=== PATIENT | male | born 1970 | race Hispanic/Latino ===

== ENCOUNTER 2019-05-07 16:56 | Emergency (ER) | payer OTHER ==
[2019-05-07] MEDS ORDERED: SODIUM CHLORIDE 0.9% 1000ML 1,000 ML IV ONE (17:26)
[2019-05-07] MEDS ORDERED: ONDANSETRON HCL 4 MG/2 ML VIAL ONE (17:27)
[2019-05-07 17:28] LABS: BASOPHILS % (AUTO) 0.8 % (0.0-5.0); EOSINOPHILS % (AUTO) 2.8 % (0.0-8.0); HEMATOCRIT 40.7 % (42-54); LYMPHOCYTES % (AUTO) 34.1 % (21.0-51.0); MEAN CORPUSCULAR HEMOGLOBIN 31.2 pg (27.0-33.0); MEAN CORPUSCULAR HGB CONC 34.7 g/dL (32.0-36.0); MEAN CORPUSCULAR VOLUME 89.9 fL (79-99); MONOCYTES % (AUTO) 5.2 % (3.0-13.0); NEUTROPHILS % (AUTO) 57.1 % (40.0-77.0); PLATELET COUNT (AUTO) 241 K/uL (130-400); RED BLOOD CELL COUNT(AUTO) 4.53 MIL/uL (4.50-6.20); RED CELL DISTRIBUTION WIDTH 14.3 % (11.0-15.5); WHITE BLOOD COUNT (AUTO) 9.7 K/uL (4.8-10.8)
[2019-05-07 17:42] LABS: CREATININE 0.9 mg/dL (0.5-1.5); POTASSIUM 3.5 mmol/L (3.5-5.1)
[2019-05-07 17:43] LABS: ALBUMIN 3.4 g/dL (3.5-5.0); BILIRUBIN,TOTAL 0.3 mg/dL (0.2-1.0); TOTAL PROTEIN, SERUM 6.9 g/dL (6.0-8.3)
== END 2019-05-07 18:43 | disposition home or self-care (01) ==
LOC: EDH 16:56
DX: R10.13 Epigastric pain (principal); R11.2 Nausea with vomiting, unspecified; Z72.0 Tobacco use
CPT/HCPCS: 36415; 80053; 83690; 84484; 85025; 93005; 96361; 96374; 96375; 99285; J2405; J7030

== ENCOUNTER 2019-10-05 14:13 | Inpatient (IN) | payer SELFPAY ==
[~2019-10-05] VITALS: Ht 172.7 cm; Wt 97.1 kg
[2019-10-05 14:32] LABS: BASOPHILS % (AUTO) 0.3 % (0.0-5.0); EOSINOPHILS % (AUTO) 1.1 % (0.0-8.0); HEMATOCRIT 41.6 % (42-54); LYMPHOCYTES % (AUTO) 25.2 % (21.0-51.0); MEAN CORPUSCULAR HEMOGLOBIN 29.3 pg (27.0-33.0); MEAN CORPUSCULAR HGB CONC 34.1 g/dL (32.0-36.0); MEAN CORPUSCULAR VOLUME 85.8 fL (79-99); MONOCYTES % (AUTO) 6.1 % (3.0-13.0); NEUTROPHILS % (AUTO) 66.8 % (40.0-77.0); PLATELET COUNT (AUTO) 244 K/uL (130-400); RED BLOOD CELL COUNT(AUTO) 4.85 MIL/uL (4.50-6.20); RED CELL DISTRIBUTION WIDTH 13.2 % (11.0-15.5); WHITE BLOOD COUNT (AUTO) 13.5 K/uL (4.8-10.8)
[2019-10-05 14:40] LABS: INR 0.94 (0.85-1.15); PARTIAL THROMBOPLASTIN TIME 29.7 SEC (26.3-35.5); PROTHROMBIN TIME 9.9 SEC (9.6-11.6)
[2019-10-05 14:45] LABS: CREATININE 0.9 mg/dL (0.5-1.5); POTASSIUM 3.4 mmol/L (3.5-5.1)
[2019-10-05 14:57] LABS: ALBUMIN 2.6 g/dL (3.5-5.0); BILIRUBIN,TOTAL 0.4 mg/dL (0.2-1.0); TOTAL PROTEIN, SERUM 6.8 g/dL (6.0-8.3)
[2019-10-05] MEDS ORDERED: KETOROLAC TROMETHAMINE 30MG/ML ONE (16:31)
[2019-10-05] MEDS ORDERED: LACTULOSE 20 GM/30 ML UDCUP PO PRN (19:00)
[2019-10-05] MEDS ORDERED: POTASSIUM CHLORIDE 20MEQ/100ML 100 ML IV PRN (19:00)
[2019-10-05] MEDS ORDERED: LIDOCAINE HCL-MPF 1% 2ML VIAL IV PRN (19:00)
[2019-10-05] MEDS ORDERED: ACETAMINOPHEN 325 MG TAB PO PRN ×2 (19:00)
[2019-10-05] MEDS ORDERED: POTASSIUM CHLORIDE 10% ELIXIR 20 MEQ/15 ML UDCUP PO PRN (19:00)
[2019-10-05] MEDS ORDERED: ACETAMINOPHEN 325 MG TAB ONE (20:02)
[2019-10-05] MEDS: FAMOTIDINE 20MG TAB 20 MG TAB PO SCH (21:00)
[2019-10-05] MEDS: ATORVASTATIN CALCIUM 20 MG TABLET PO SCH (21:00)
[2019-10-05 21:24] LABS: APPEARANCE,URINE Clear (CLEAR); BILIRUBIN,URINE Small (NEGATIVE); COLOR,URINE Dark Yellow (YELLOW); GLUCOSE, URINE (UA) Negative (NEGATIVE); KETONES,URINE Trace mg/dL (NEGATIVE); LEUKOCYTE ESTERASE ,URINE Negative (NEGATIVE); NITRATE,URINE Negative (NEGATIVE); OCCULT BLOOD,URINE Negative (NEGATIVE); PROTEIN,URINE Trace mg/dL (NEGATIVE)
[2019-10-05 21:32] LABS: AMPHET/METH SCREEN,URINE NEGATIVE (NEGATIVE); BARBITURATE SCREEN, URINE NEGATIVE (NEGATIVE); BENZODIAZEPINES SCREEN,URINE NEGATIVE (NEGATIVE); CANNABINOID SCREEN,URINE NEGATIVE (NEGATIVE); COCAINE SCREEN,URINE NEGATIVE (NEGATIVE); OPIATE SCREEN,URINE NEGATIVE (NEGATIVE); PHENCYCLIDINE SCREEN,URINE NEGATIVE (NEGATIVE)
[2019-10-05 21:39] LABS: BACTERIA,URINE Few /HPF (None Seen); MUCUS,URINE Moderate LPF (None Seen); SQUAMOUS EPITHELIAL CELL,UR 0-2 /HPF (0-2)
[2019-10-05 21:49] LABS: CREATINE KINASE, TOTAL 106 U/L (21-232); MYOGLOBIN 60 ng/mL (10-92); TROPONIN I < 0.04 ng/mL (0.00-0.06)
[2019-10-05] MEDS ORDERED: FAMOTIDINE 20MG TAB 20 MG TAB ONE (22:14)
[2019-10-05] MEDS ORDERED: ATORVASTATIN CALCIUM 20 MG TABLET ONE (22:15)
[2019-10-06 00:24] VITALS: BP 116/59
[2019-10-06 04:00] VITALS: BP 103/62
[2019-10-06 04:02] LABS: BASOPHILS % (AUTO) 0.6 % (0.0-5.0); LYMPHOCYTES % (AUTO) 35.1 % (21.0-51.0); MEAN CORPUSCULAR HEMOGLOBIN 29.6 pg (27.0-33.0); MEAN CORPUSCULAR HGB CONC 34.1 g/dL (32.0-36.0); MEAN CORPUSCULAR VOLUME 86.7 fL (79-99); MONOCYTES % (AUTO) 4.8 % (3.0-13.0); NEUTROPHILS % (AUTO) 57.2 % (40.0-77.0); PLATELET COUNT (AUTO) 245 K/uL (130-400); RED CELL DISTRIBUTION WIDTH 13.2 % (11.0-15.5)
[2019-10-06 04:15] LABS: POTASSIUM 3.8 mmol/L (3.5-5.1)
[2019-10-06 08:23] VITALS: BP 113/69
[2019-10-06] MEDS: FAMOTIDINE 20MG TAB 20 MG TAB PO SCH ×2 (08:45→20:45)
[2019-10-06] MEDS ORDERED: ASPIRIN 325 MG TABLET PO SCH (09:00)
[2019-10-06 11:54] VITALS: BP 120/69
[2019-10-06] MEDS: POTASSIUM CHLORIDE 20 MEQ ERTAB PO PRN ×2 (11:56→15:52)
[2019-10-06 17:01] VITALS: BP 121/83
--- NOTE | 2019-10-06 17:32 | NUR ---
INITIAL SW met with patient. Patient states he lives with his daughter. Emergency contact is girlfriend, Marla Gibbs, [phone]. No home services or DME. 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 He is able to complete ADL's independently and drives. No PCP. Pharmacy is [facility] in [place]. DCP is home. Patient has no insurance or benefits. He is a [place] citizen and presently works. Patient was provided with community resources for post hospitalization follow up. Patient was also provided with Good RX card for prescriptions and educated on [employer] $4 medication program and [employer] $5 medication program. Patient is being assisted by [employer] for financial matters. Addendum: 10/06/19 at 1734 by SHERIDAN MONROY SS Amended: Links added.
--- NOTE | 2019-10-06 19:57 | NUR ---
RECEIVED IN REPORT FROM MORNING SHIFT NURSE SOPHIA, THAT SHE SPOKE TO DR. RILEY AND REPORTED TO HIM THE MRA, AND CT CHEST RESULTS. ATTEMPTED TO FAX DOCUMENTATION TO THE NUMBER THAT WAS GIVEN BY DR. RILEY IN HIS ORDER, CURRENTLY BUSY. WILL ATTEMPT AGAIN LATER.
[2019-10-06 20:28] VITALS: BP 117/56
[2019-10-06] MEDS: ATORVASTATIN CALCIUM 20 MG TABLET PO SCH (20:45)
[2019-10-06] MEDS: CLOPIDOGREL BISULFATE 75 MG TAB PO SCH (20:46)
[2019-10-07 00:23] VITALS: BP 112/70
[2019-10-07 03:52] LABS: BASOPHILS % (AUTO) 0.3 % (0.0-5.0); EOSINOPHILS % (AUTO) 1.9 % (0.0-8.0); HEMATOCRIT 39.2 % (42-54); MEAN CORPUSCULAR HEMOGLOBIN 29.2 pg (27.0-33.0); MEAN CORPUSCULAR HGB CONC 33.4 g/dL (32.0-36.0); MEAN CORPUSCULAR VOLUME 87.3 fL (79-99); MONOCYTES % (AUTO) 5.5 % (3.0-13.0); PLATELET COUNT (AUTO) 283 K/uL (130-400); RED BLOOD CELL COUNT(AUTO) 4.49 MIL/uL (4.50-6.20); RED CELL DISTRIBUTION WIDTH 13.2 % (11.0-15.5); WHITE BLOOD COUNT (AUTO) 11.6 K/uL (4.8-10.8)
[2019-10-07 04:00] VITALS: BP 107/67
[2019-10-07 04:17] LABS: ALBUMIN 2.1 g/dL (3.5-5.0); BILIRUBIN,TOTAL 0.1 mg/dL (0.2-1.0); CREATININE 0.8 mg/dL (0.5-1.5); POTASSIUM 4.1 mmol/L (3.5-5.1); TOTAL PROTEIN, SERUM 5.8 g/dL (6.0-8.3)
[2019-10-07 08:00] VITALS: BP 115/73
[2019-10-07] MEDS: FAMOTIDINE 20MG TAB 20 MG TAB PO SCH (08:49)
[2019-10-07] MEDS: CLOPIDOGREL BISULFATE 75 MG TAB PO SCH (08:50)
[2019-10-07] MEDS ORDERED: CLOPIDOGREL BISULFATE 75 MG TAB PO SCH (09:00)
[2019-10-07] MEDS ORDERED: ASPIRIN 81MG TAB.CHEW PO SCH (09:00)
--- NOTE | 2019-10-07 10:00 | NUR ---
DR RILEY VISITED WITH PATIENT. POC DISCUSSED. DR RILEY DISCUSSED WITH PATIENT AND AT BEDSIDE MRA RESULTS, PATIENT REFUSED AT THIS TIME TO FOLLOW DR RILEY RECOMMENDATIONS TO SEE DR DE OLIVEIRA FOR ENDOVASCULAR INTERVENTION. DR RILEY ALSO RECOMMENDED FOR HIM TO F/U AT HIS OFFICE.
[2019-10-07 11:00] VITALS: BP 118/77
[2019-10-07] MEDS ORDERED: GABAPENTIN 100 MG CAPSULE PO SCH (14:00)
[2019-10-07 16:00] VITALS: BP 111/70
--- NOTE | 2019-10-07 17:12 | NUR ---
DR KRAUS CALLED BACK REGARDING CONSULT. STATED THERE IS NOTHING HE CAN DO FOR THE PATIENT. PATIENT NEEDS TO FOLLOW DR RILEY'S RECOMMENDATIONS. DEBI TATUM AWARE, ORDERED TO D/C PATIENT.
--- NOTE | 2019-10-07 18:30 | NUR ---
discharge PATIENT GIVEN DISCHARGE INSTRUCTION ON FOLLOW UP APPOINTMENTS, NEW PRESCRIBED MEDICATIONS AND DR RILEY'S RECOMMENDATIONS. PATIENT VERBALIZED UNDERSTANDING OF ALL EDUCATION GIVEN VIA TEACH BACK. PATIENT AWARE OF RISKS AND BENEFITS OF NOT FOLLOWINGS DR RILEY'S INSTRUCTIONS. PATIENT LEFT VIA WHEELCHAIR. NO DISTRESS NOTED UPON DISCHARGE.
== END 2019-10-07 19:05 | disposition home or self-care (01) | DRG 57 ==
LOC: EDH 14:13 → OBSVTOIN 14:14 → EDHIP 14:14 → 4BH 10-06 00:14
PROVIDERS: ADMIT Internal Medicine; ATTEND Internal Medicine
DX: G70.00 Myasthenia gravis without (acute) exacerbation (principal); G45.9 Transient cerebral ischemic attack, unspecified; E44.0 Moderate protein-calorie malnutrition; G51.0 Bell's palsy; H53.2 Diplopia; E87.6 Hypokalemia; Z87.891 Personal history of nicotine dependence; Z91.19 Patient's noncompliance with other medical treatment and regimen; H02.402 Unspecified ptosis of left eyelid; Z68.32 Body mass index [BMI] 32.0-32.9, adult
CPT/HCPCS: 36415; 70450; 70544; 70551; 71045; 71250; 80048; 80053; 80061; 80305; 81001; 82550; 82948; 83721; 83874; 84238; 84484; 85025; 85610; 85730; 93005; 97039; 99291; G0378; J1885

== ENCOUNTER → 2020-10-11 | Outpatient (CLI) | payer MEDICAID | END | disposition home or self-care (01) | LOC: OIH 09:31 | PROVIDERS: ATTEND Internal Medicine | DX: J98.11 Atelectasis (principal); I63.9 Cerebral infarction, unspecified; R56.9 Unspecified convulsions | CPT/HCPCS: 71046 ==

== ENCOUNTER → 2021-12-16 | Outpatient (CLI) | payer MEDICAID ==
[2021-12-16 14:24] LABS: BASOPHILS % (AUTO) 0.9 % (0.0-5.0); EOSINOPHILS % (AUTO) 3.8 % (0.0-8.0); HEMATOCRIT 45.8 % (42-54); LYMPHOCYTES % (AUTO) 36.4 % (21.0-51.0); MEAN CORPUSCULAR HEMOGLOBIN 30.5 pg (27.0-33.0); MEAN CORPUSCULAR HGB CONC 33.4 g/dL (32.0-36.0); MEAN CORPUSCULAR VOLUME 91.4 fL (79-99); MONOCYTES % (AUTO) 6.2 % (3.0-13.0); NEUTROPHILS % (AUTO) 52.3 % (40.0-77.0); PLATELET COUNT (AUTO) 274 K/uL (130-400); RED BLOOD CELL COUNT(AUTO) 5.01 MIL/uL (4.50-6.20); RED CELL DISTRIBUTION WIDTH 13.8 % (11.0-15.5); WHITE BLOOD COUNT (AUTO) 10.4 K/uL (4.8-10.8)
[2021-12-16 14:45] LABS: ALBUMIN 3.4 g/dL (3.5-5.0); BILIRUBIN,TOTAL 0.2 mg/dL (0.2-1.0); CREATININE 1.1 mg/dL (0.5-1.5); POTASSIUM 4.3 mmol/L (3.5-5.1); THYROID STIMULATING HORMONE 2.41 uIU/mL (0.36-3.74); TOTAL PROTEIN, SERUM 7.2 g/dL (6.0-8.3)
== END | disposition home or self-care (01) ==
LOC: RAH 13:35
PROVIDERS: ATTEND Internal Medicine
DX: J44.9 Chronic obstructive pulmonary disease, unspecified (principal); J32.9 Chronic sinusitis, unspecified; M72.2 Plantar fascial fibromatosis; M1A.9XX1 Chronic gout, unspecified, with tophus (tophi)
CPT/HCPCS: 36415; 71046; 80053; 84443; 85025

== ENCOUNTER 2023-07-31 09:31 | Emergency (ER) | payer MEDICAID, OTHER ==
[~2023-07-31] VITALS: Ht 165.1 cm; Wt 97.5 kg
[2023-07-31 10:09] LABS: HEMATOCRIT 48.3 % (42-54); MEAN CORPUSCULAR HGB CONC 34.2 g/dL (32.0-36.0); MEAN CORPUSCULAR VOLUME 90.8 fL (79-99); RED BLOOD CELL COUNT(AUTO) 5.32 MIL/uL (4.50-6.20); RED CELL DISTRIBUTION WIDTH 13.2 % (11.0-15.5); WHITE BLOOD COUNT (AUTO) 10.8 K/uL (4.8-10.8)
[2023-07-31 10:21] LABS: CREATININE 0.9 mg/dL (0.5-1.5); POTASSIUM 3.6 mmol/L (3.5-5.1)
[2023-07-31 10:25] LABS: ALBUMIN 3.6 g/dL (3.5-5.0); BILIRUBIN,TOTAL 0.5 mg/dL (0.2-1.0); TOTAL PROTEIN, SERUM 7.6 g/dL (6.0-8.3)
[2023-07-31] MEDS ORDERED: ONDANSETRON 4MG INJ IVP ONE (10:30)
[2023-07-31] MEDS ORDERED: MORPHINE 4 MG SYG IVP ONE (10:30)
[2023-07-31] MEDS ORDERED: LIDOCAINE HCL 2% VISCOUS 15 ML UDCUP PO ONE (10:30)
[2023-07-31] MEDS ORDERED: MAG/ALUM/SIMETH 30 ML UDCUP PO ONE (10:30)
[2023-07-31] MEDS ORDERED: 0.9%NACL 1000ML 1,000 ML IV ONE (10:30)
[2023-07-31] MEDS ORDERED: FAMO20TA8 PO (12:10)
[2023-07-31 13:15] VITALS: BP 125/70; PULSE 70; RESP 18; O2SAT 95
[2023-07-31 13:27] LABS: ADD UA MICROSCOPIC YES; APPEARANCE,URINE CLEAR (CLEAR); BILIRUBIN,URINE NEGATIVE (NEGATIVE); COLOR,URINE YELLOW (YELLOW); GLUCOSE, URINE (UA) NEGATIVE (NEGATIVE); KETONES,URINE NEGATIVE (NEGATIVE); LEUKOCYTE ESTERASE ,URINE NEGATIVE Leu/uL (NEGATIVE); NITRATE,URINE NEGATIVE (NEGATIVE); OCCULT BLOOD,URINE NEGATIVE (NEGATIVE); PH,URINE 6.5 (5.0-8.0); PROTEIN,URINE 20 mg/dL (NEGATIVE); UROBILINOGEN,URINE 6 mg/dL (0.2-1.0)
[2023-07-31 13:28] LABS: MUCUS,URINE RARE LPF (None Seen); OTHER CASTS, URINE 1 /LPF (None Seen); RBC,URINE 0-1 /HPF (0-1); SQUAMOUS EPITHELIAL CELL,UR RARE /HPF (0-2); WBC,URINE 0-1 /HPF (0-1)
== END 2023-07-31 13:48 | disposition home or self-care (01) ==
LOC: EDH 09:31
DX: K29.00 Acute gastritis without bleeding (principal); R16.0 Hepatomegaly, not elsewhere classified; R11.10 Vomiting, unspecified; Z98.890 Other specified postprocedural states
CPT/HCPCS: 99285; 96374; 76705; 96361; 96375; 84484; 80053; 83690; 85027; 81001; 36415; 93005; J7030; J2405; J2270

== ENCOUNTER 2024-08-27 19:14 | Emergency (ER) | payer SELFPAY ==
[~2024-08-27] VITALS: Ht 167.6 cm; Wt 99.8 kg
[~2024-08-27 19:14] MED LIST: FAMO20TA8 PO
[2024-08-27 19:15] VITALS: TEMP 98.1
--- NOTE | 2024-08-27 20:06 | ERN ---
ED Note History of Present Illness Stated Complaint: COUGH, CONGESTION, BODY ACHES Chief Complaint: Cough Time Seen by MD: 19:20 Dictation: Patient is a 54-year-old male coming in with flu-like symptoms to include malaise, persistent dry cough, clear runny nose with sore throat for 3-4 days. No nausea vomiting no diarrhea no loss of taste or smell. He has taken nothing today prior to arrival for pain or cough, no primary care doctor. Allergies: Coded Allergies: No Known Allergies (Unverified Allergy, Unknown, 05/07/19) Home Meds Active Scripts Famotidine (Famotidine) 20 Mg Tablet, 20 MG PO BID, #14 TAB Prov:RONY LEE 07/31/23 Past Medical History Past Medical History: No Pertinent History Surgical History: None Surgical History Other: CARDIAC STENT RN Note Reviewed/Agreed w/PFSH: Yes Review of System Dictation CONSTITUTIONAL: Negative except for HPI HEAD/FACE: Negative except for HPI EENT: Negative except for HPI clear rhinitis with sore throat RESPIRATORY: Negative except for HPI persistent dry cough GASTROINTESTINAL/ABDOMINAL: Negative except for HPI GENITOURINARY: Negative except for HPI MUSCULOSKELETAL: Negative except for HPI malaise INTEGUMENTARY: Negative except for HPI NEUROLOGICAL/PSYCH: Negative except for HPI HEMATOLOGIC/LYMPHATIC: Negative except for HPI All Systems Negative, Except as noted above. 13 point review of systems assessed and all negative except for above. Initial Vital Sign VS Vital Signs Date Time Temp Pulse Resp B/P (MAP) Pulse Ox O2 Delivery O2 Flow Rate FiO2 08/27/24 19:15 98.1 76 20 148/82 98 Room Air 08/27/24 19:57 0 21 Physical Exam Dictation Vital Signs reviewed General Appearance: Alert, oriented x 3, mild acute distress, well developed, nourished. Head and Face: non-traumatic. Eyes: PERRL, pink conjunctivas, eyelid no trauma, anterior chamber with arcus senilis. Ears: Pinnas intact and no signs of trauma or erythema ear canals clear and no discharge TM no erythema Nose: Clear discharge, no bleeding. Oropharynx: Mouth normal, tongue pink, pharynx clear, mild pharyngeal erythema, tonsils no exudates, no abscesses noted, mucous membrane moist uvula midline, voice is clear. Neck: Supple, non-tender, no thyromegaly, no masses, no JVD, no bruits Breast:Deferred Chest:No tenderness, no crepitus, no paradoxical movement, no retractions Lungs:Clear, well-ventilated, symmetric, no rales, no wheezing, no rhonchi, no stridor, good breath sounds bilaterally persistent dry cough Heart: Regular rate, regular rhythm, no murmur, no gallops Vascular: no peripheral edema, Abdomen: Soft, positive bowel sounds, nondistended, no guarding, nontender, no rebound, no masses no hepatomegaly, no splenomegaly, no Bill's sign, no hernias. Rectal: Deferred Genital: Deferred Neurological: Normal speech, motor function intact, sensory function intact Musculoskeletal: Neck nontender, full range of motion, back nontender, full range of motion, Extremities: nontender, full range of motion Skin: Color pink, dry, no turgor, no rash, no lacerations, no abrasions, no contusions. Lymphatic: Deferred Results (Laboratory/Radiology) Laboratory/Radiology Laboratory Tests Test 08/27/24 20:18 Influenza Type A Antigen Negative For Type A Influenza Type B Antigen Negative For Type B SARS-CoV-2 Antigen (Rapid) PRESUMPTIVE NEGATIVE Group A Streptococcus Rapid negative (NEGATIVE) Labs Reviewed?: Yes ED Course ED Course Orders Procedure Category Date Status Time Dexamethasone 4mg/Ml PHA 08/27/24 Complete 1ml Vial (Dexametha 20:30 Rapid (Group A Strep) LAB 08/27/24 Complete 20:03 Covid19 (Sars Antigen LAB 08/27/24 Complete Rapid) 20:03 Influenza Type A & B, LAB 08/27/24 Complete Rapid 20:03 Current Medications Medications (Trade) Dose Ordered Sig/Sylvester Route PRN Reason Start Time Stop Time Status Last Admin Dose Admin Dexamethasone Sodium Phosphate (dexaMETHasone 4MG/ML 1ML VIAL) 8 mg ONCE ONCE IM 08/27/24 20:30 08/27/24 20:31 DC 08/27/24 20:12 Vital Signs Date Time Temp Pulse Resp B/P (MAP) Pulse Ox O2 Delivery O2 Flow Rate FiO2 08/27/24 19:57 73 20 154/88 95 Room Air* 0 21 08/27/24 19:15 98.1 76 20 148/82 98 Room Air 2055, LABS NEGATIVE PATIENT WILL BE DISCHARGED HOME WITH DIAGNOSIS OF VIRAL URI WITH COUGH AND ACUTE PHARYNGITIS UNSPECIFIED. Medical Decision Making MDM MEDICAL DISCHARGE MAKING BASED ON FLU COVID AND STREP SWABS ALL SWABS NEGATIVE PATIENT GIVEN DECADRON8 MG FOR PERSISTENT COUGH WE WILL BE PRESCRIBED AZITHROMYCIN 500 MG Q.DAY FOR FIVE DAYS WITH THE ALBUTEROL AND MEDROL DOSEPAK DX & DISP Disposition: Discharge Departure Impression: Primary Impression: Viral URI with cough Additional Impressions: Acute pharyngitis, unspecified, Tobacco abuse Condition: Stable Scripts Benzonatate (Tessalon Perles) 100 Mg Cap 100 MG PO TID for cough, #30 CAP 0 Refills Prov: PATRICE DURAN NP 08/27/24 Methylprednisolone (Medrol) 4 Mg Tab.ds.pk 1 TAB PO AD for 6 Days, #21 TAB 0 Refills 6 on day 1 then reduce by one tablet daily until gone Prov: PATRICE DURAN NP 08/27/24 Azithromycin (Zithromax Tri-Pablito) 500 Mg Tablet 500 MG PO DAILY for 5 Days, #5 TAB Prov: PATRICE DURAN NP 08/27/24 Additional Instructions: FOLLOW-UP WITH PRIMARY CARE PROVIDER IN 1 TO 2 DAYS. TAKE MEDICATIONS DIRECTED HERE IN THE EMERGENCY ROOM. OKAY TO CONTINUE HOME MEDICATIONS UNLESS OTHERWISE DISCUSSED DURING YOUR VISIT IN THE EMERGENCY ROOM TODAY. RETURN TO YOUR NEAREST EMERGENCY ROOM IF SYMPTOMS WORSEN OR IF THERE IS NO IMPROVEMENT. CALL 911 IF YOU NEED IMMEDIATE ASSISTANCE. TAKE TYLENOL OR MOTRIN [id number] NEEDED AND IF NO CONTRAINDICATIONS ARE PRESENT. INCREASE ORAL HYDRATION. A WOUND CULTURE OR URINE CULTURE WAS ORDERED HERE IN THE EMERGENCY ROOM DEPARTMENT PLEASE FOLLOW-UP WITH PRIMARY CARE PROVIDER AND ADVISE THEM TO GET REPEAT PORTS FROM OUR FACILITY. IF YOU HAD ANY ROSANNE WRAP/SPLINTS THAT WERE APPLIED HERE, PLEASE DO NOT REMOVE THEM UNTIL YOU SEE YOUR PRIMARY CARE OR SPECIALTY. TAKE AZITHROMYCIN DIRECTED UNTIL GONE. INCREASE YOUR WATER INTAKE. FOLLOW UP PRIMARY CARE DOCTOR IN 1-2 DAYS. Referrals: TAMMY COX MD (PCP) Time of Disposition: 21:00 I have reviewed the case, and I agree with, Diagnosis and Plan PATRICE DURAN NP Aug 27, 2024 20:06
[2024-08-27] MEDS: dexaMETHasone SOD PHOSPHATE 4 MG/ML 1ML VIAL IM ONE (20:12)
[2024-08-27 20:42] LABS: RAPID GROUP A STREP negative (NEGATIVE)
[2024-08-27 20:51] LABS: COVID19 (SARS ANTIGEN RAPID) PRESUMPTIVE NEGATIVE (NEGATIVE); INFLUENZA TYPE A Negative For Type A (NEGATIVE); INFLUENZA TYPE B Negative For Type B (NEGATIVE)
[2024-08-27] MEDS ORDERED: BENZ-39 PO (21:01)
[2024-08-27] MEDS ORDERED: AZIT500T2 PO (21:01)
[2024-08-27] MEDS ORDERED: METH4TAB3 PO (21:01)
[2024-08-27 21:31] VITALS: BP 157/95; PULSE 66; RESP 17; O2SAT 100
== END 2024-08-27 21:32 | disposition home or self-care (01) ==
LOC: EDH 19:14
DX: J06.9 Acute upper respiratory infection, unspecified (principal); R05.9 Cough, unspecified; B97.89 Other viral agents as the cause of diseases classified elsewhere; J02.9 Acute pharyngitis, unspecified; Z72.0 Tobacco use; Z95.5 Presence of coronary angioplasty implant and graft; Z20.822 Contact with and (suspected) exposure to COVID-19
CPT/HCPCS: 99283; 87426; 87880; 87804 ×2; 96372; J1100